=== PATIENT | male | born 1955 | race Caucasian/White ===

== ENCOUNTER → 2017-11-02 | Outpatient (CLI) | payer OTHER ==
[~2017-11-02] MED LIST: ALBU0.63 IH; ALBU6.7H IH; ANDROGEL TP; BUDE10.2 IH; FLUT16H NASAL; MONT10TA21 PO; TIOTROPIUM IH
== END ==
LOC: SHCH 09:46
PROVIDERS: ATTEND Internal Medicine Cardiovascular Disease
DX: I08.1 Rheumatic disorders of both mitral and tricuspid valves (principal); I87.2 Venous insufficiency (chronic) (peripheral); I42.9 Cardiomyopathy, unspecified
CPT/HCPCS: 93306; 93970

== ENCOUNTER → 2019-07-27 | Outpatient (CLI) | payer OTHER ==
[~2019-07-27] MED LIST changes: -ALBU6.7H IH; +ALBU6.7H9 IH
== END | disposition home or self-care (01) ==
LOC: SHCH 13:07
PROVIDERS: ATTEND Internal Medicine Cardiovascular Disease
DX: I87.2 Venous insufficiency (chronic) (peripheral) (principal); I73.9 Peripheral vascular disease, unspecified
CPT/HCPCS: 93925; 93970

== ENCOUNTER → 2019-08-25 | Outpatient (CLI) | payer OTHER | END | disposition home or self-care (01) | LOC: RAH 14:27 | PROVIDERS: ATTEND Internal Medicine Cardiovascular Disease | DX: Z13.6 Encounter for screening for cardiovascular disorders (principal) | CPT/HCPCS: 75571 ==

== ENCOUNTER 2020-05-03 14:40 | Emergency (ER) | payer OTHER ==
[2020-05-03] MEDS ORDERED: ACETAMINOPHEN EXTRA STRENGTH 500 MG TABLET ONE (16:10)
[2020-05-03] MEDS ORDERED: CYCLOBENZAPRINE HCL 10 MG TABLET ONE (16:11)
== END 2020-05-03 17:31 | disposition home or self-care (01) ==
LOC: EDH 14:40
DX: S23.41XA Sprain of ribs, initial encounter (principal); J44.9 Chronic obstructive pulmonary disease, unspecified; Y92.480 Sidewalk as the place of occurrence of the external cause; W18.39XA Other fall on same level, initial encounter; Y93.89 Activity, other specified; Y92.89 Other specified places as the place of occurrence of the external cause; Y99.8 Other external cause status
CPT/HCPCS: 71101

== ENCOUNTER → 2021-04-17 | Outpatient (CLI) | payer OTHER | END | disposition home or self-care (01) | LOC: SHCH 13:36 | PROVIDERS: ATTEND Internal Medicine Cardiovascular Disease | DX: I73.9 Peripheral vascular disease, unspecified (principal) | CPT/HCPCS: 93925 ==